=== PATIENT | male | born 1990 | race Caucasian/White ===

== ENCOUNTER 2022-08-28 06:10 | Day surgery (SDC) | payer BC ==
[~2022-08-28] VITALS: Ht 170.2 cm; Wt 77.1 kg
[~2022-08-28 06:10] MED LIST: ALLERGY RELIEF10 MG PO; OMEPRAZOLE10 MG PO
[2022-08-28] MEDS ORDERED: ALBUTEROL SUL0.083 % IN (06:38)
[2022-08-28] MEDS ORDERED: ZYRTEC10 M5 PO (06:39)
[2022-08-28] MEDS ORDERED: OMEPRAZOLE10 MG PO (07:30)
[2022-08-28 08:04] VITALS: BP 104/77
== END 2022-08-28 08:06 | disposition home or self-care (01) | DRG 392 ==
LOC: ENDO 06:10 → ORM 07:40 → ENDO 08:06 → ORM 08:45
PROVIDERS: ATTEND Surgery
PROC: 0DB98ZX Excision of Duodenum, Via Natural or Artificial Opening Endoscopic, Diagnostic (ICD-10-PCS; principal; 2022-08-28)
PROC: 0DB78ZX Excision of Stomach, Pylorus, Via Natural or Artificial Opening Endoscopic, Diagnostic (ICD-10-PCS; 2022-08-28)
PROC: 0DB48ZX Excision of Esophagogastric Junction, Via Natural or Artificial Opening Endoscopic, Diagnostic (ICD-10-PCS; 2022-08-28)
DX: K21.00 Gastro-esophageal reflux disease with esophagitis, without bleeding (principal); K29.70 Gastritis, unspecified, without bleeding; K44.9 Diaphragmatic hernia without obstruction or gangrene; Z79.899 Other long term (current) drug therapy